=== PATIENT | male | born 1960 | race Caucasian/White ===

== ENCOUNTER 2025-01-31 10:30 | Emergency (ER) | payer OTHER ==
[~2025-01-31] VITALS: Ht 182.9 cm; Wt 105.0 kg
[2025-01-31 10:49] VITALS: TEMP 36.9
[2025-01-31] MEDS: PREDNISONE 20MG TABLET PO STA (11:15)
[2025-01-31 11:20] VITALS: PULSE 84; RESP 18; O2SAT 94
[2025-01-31 11:21] LABS: BASOPHILS % 0.3 % (0.0-2.0); EOSINOPHILS % 4.5 % (0.0-5.0); HEMOGLOBIN. 15.7 g/dL (14.0-18.0); LYMPHOCYTES % 30.9 % (20.0-50.0); MEAN CORPUSCULAR HEMOGLOBIN 30.4 pg (28.0-32.0); MEAN CORPUSCULAR HGB CONC 32.6 g/dL (31.0-37.0); MEAN CORPUSCULAR VOLUME 93.3 fL (80.0-94.0); MEAN PLATELET VOLUME 7.7 fl (7.4-10.4); MONOCYTES % 5.8 % (2.0-8.0); NEUTROPHILS % 58.5 % (40.0-76.0); PLATELET 251 x1000/uL (130-400); RED BLOOD CELL COUNT 5.15 mill/uL (4.7-6.1); RED CELL DISTRIBUTION WIDTH 14.4 % (11.6-14.6); WHITE BLOOD COUNT 8.3 x1000/uL (4.5-11.0)
[2025-01-31] MEDS: ALBUTEROL (0.083%) 2.5MG/3ML NEB HHN STA (11:22)
[2025-01-31] MEDS: IPRATROPIUM BROMIDE (0.02%) 0.5MG/2.5ML NEB HHN STA (11:22)
[2025-01-31 11:33] LABS: CARBON DIOXIDE 28 mEq/L (21-32); CHLORIDE 105 mEq/L (98-107); POTASSIUM 4.2 mEq/L (3.5-5.1); SODIUM 142 mEq/L (136-145)
[2025-01-31 11:34] LABS: CALCIUM 9.7 mg/dL (8.7-10.4)
[2025-01-31 11:39] LABS: CREATININE 0.8 mg/dL (0.6-1.3); GLUCOSE 80 mg/dL (70-105); TROPONIN I HIGH SENSITIVITY 12 ng/L (3.0-53); UREA NITROGEN BLOOD 6 mg/dL (9-23)
[2025-01-31] MEDS ORDERED: P20 MT (12:50)
[2025-01-31] MEDS ORDERED: ALBU90AE INH (12:50)
[2025-01-31 12:57] VITALS: BP 121/74; PULSE 91; RESP 18; O2SAT 93
== END 2025-01-31 13:06 | disposition home or self-care (01) ==
LOC: ER 10:30
DX: J44.1 Chronic obstructive pulmonary disease with (acute) exacerbation (principal); F17.200 Nicotine dependence, unspecified, uncomplicated
CPT/HCPCS: 80048; 83880; 85025; 84484; 36415; 71045; 94640; 93005; 99285; 99406; J7512; Z7610 ×4; 94070; 94664